=== PATIENT | female | born 1955 | race Caucasian/White ===

== ENCOUNTER 2016-11-21 12:30 | Observation (INO) | payer BC ==
[~2016-11-21] VITALS: Ht 154.9 cm; Wt 71.9 kg
[~2016-11-21 12:30] MED LIST: ASPIR 8181 M1 PO; ASPIRIN81 M1 PO; ESTROGEN PATCH; METOPROLOL SUCC25 MG PO; METOPROLOL TART25 MG PO; PRINIVIL10 MG PO; SIMVASTATIN40 M1 PO; SIMVASTATIN40 MG PO; ZOLPIDEM TARTRAT5 MG PO
[2016-11-21] MEDS ORDERED: LO-DOSE ASPIRIN81 M2 PO ×2 (12:38→16:08)
[2016-11-21 13:19] LABS: HEMATOCRIT 43.6 % (36.0-46.0); MCH 30.6 PG (29.0-34.0); MCHC 33.5 G/DL (30.0-36.0); MCV 91.4 FL (83-99); MEAN PLAT.VOLUME 9.2 uM^3 (9.5-12.4); PLATELET COUNT 292 K/uL (156-360); RBC DIS.WIDTH-CV 13.2 % (11.8-14.6); RBC DIS.WIDTH-SD 43.1 % (39-53); RED BLOOD COUNT 4.77 M/uL (3.80-5.20); WHITE BLOOD COUNT 6.7 K/uL (4.1-10.2)
[2016-11-21 13:31] LABS: CHLORIDE 106 mEq/L (99-109); POTASSIUM 3.6 mEq/L (3.7-5.4); SODIUM 139 mEq/L (136-147)
[2016-11-21 13:32] LABS: GLUCOSE 121 mg/dL (70-99)
[2016-11-21 13:34] LABS: ANION GAP 10 MEQ/L (2-14)
[2016-11-21 13:36] LABS: GFR ESTIMATE (CALCULATED) > 59 mL/min/
[2016-11-21 13:37] LABS: UREA NITROGEN (BUN) 13 mg/dL (9-23)
[2016-11-21] MEDS ORDERED: BENADRYL25 MG PO (13:39)
[2016-11-21] MEDS ORDERED: LORAZEPAM0.5 MG PO (13:40)
[2016-11-21 14:30] LABS: TROP-I INTERPRETATION NEGATIVE; TROPONIN-I < 0.01 ng/mL (0.0-0.30)
[2016-11-21] MEDS ORDERED: LITE COAT ASPI325 M1 PO (16:07)
[2016-11-21] MEDS ORDERED: RANITIDINE HCL300 M1 PO (16:09)
[2016-11-21 17:35] VITALS: BP 139/74
[2016-11-21 20:29] VITALS: BP 130/73
[2016-11-22 00:12] VITALS: BP 109/58
[2016-11-22 04:16] VITALS: BP 116/58
[2016-11-22 08:45] VITALS: BP 126/81
[2016-11-22 09:07] LABS: MCH 30.2 PG (29.0-34.0); MCHC 33.1 G/DL (30.0-36.0); MCV 91.3 FL (83-99); PLATELET COUNT 255 K/uL (156-360); RBC DIS.WIDTH-CV 13.4 % (11.8-14.6); RBC DIS.WIDTH-SD 44.4 % (39-53); WHITE BLOOD COUNT 5.4 K/uL (4.1-10.2)
[2016-11-22 09:09] LABS: ANION GAP 10 MEQ/L (2-14); CHLORIDE 104 MEQ/L (99-109); GFR ESTIMATE (CALCULATED) > 59 mL/min/; POTASSIUM 3.9 MEQ/L (3.7-5.4); SAMPLE HEMOLYSIS CHECK 0; SAMPLE ICTERIC CHECK 0; SAMPLE LIPEMIA CHECK 0; SODIUM 142 MEQ/L (136-147); UREA NITROGEN (BUN) 12 mg/dL (9-23)
[2016-11-22 09:18] LABS: GLUCOSE 87 mg/dL (70-99)
[2016-11-22 11:31] VITALS: BP 127/71
[2016-11-22] MEDS ORDERED: LO-DOSE ASPIRIN81 M2 PO (13:40)
[2016-11-23 07:00] LABS: Estimated Average Glucose 123 mg/dL (70-123); HEMOGLOBIN A1c (GLYCOHEMOGLOB) 5.9 % HGB (Below 5.7)
== END 2016-11-22 14:30 | disposition home or self-care (01) ==
LOC: EME 12:30 → EDOF 16:00 → 5WEST 17:23
PROVIDERS: Hospitalist; Internal Medicine
DX: G45.9 Transient cerebral ischemic attack, unspecified (principal); R20.0 Anesthesia of skin; I10 Essential (primary) hypertension; E78.5 Hyperlipidemia, unspecified; F32.9 Major depressive disorder, single episode, unspecified; Z82.49 Family history of ischemic heart disease and other diseases of the circulatory system; Z83.3 Family history of diabetes mellitus; Z79.82 Long term (current) use of aspirin; Z88.8 Allergy status to other drugs, medicaments and biological substances
CPT/HCPCS: 70450; 70551; 71020; 80048; 80048 91; 83036; 84443; 84484; 85027; 93005; 99281; 99284; G0378; J1650

== ENCOUNTER 2017-03-17 20:12 | Emergency (ER) | payer BC ==
[~2017-03-17] VITALS: Ht 154.9 cm; Wt 69.3 kg
[~2017-03-17 20:12] MED LIST changes: +BENADRYL25 MG PO; +LITE COAT ASPI325 M1 PO; +LO-DOSE ASPIRIN81 M2 PO; +LORAZEPAM0.5 MG PO; +RANITIDINE HCL300 M1 PO
[2017-03-17 22:06] VITALS: BP 168/101
== END 2017-03-17 22:07 | disposition home or self-care (01) ==
LOC: EME 20:12
DX: R51 Headache (principal); R53.1 Weakness; T42.1X5A Adverse effect of iminostilbenes, initial encounter; Z88.8 Allergy status to other drugs, medicaments and biological substances
CPT/HCPCS: 99281; 99283